=== PATIENT | male | born 1945 | race Caucasian/White ===

== ENCOUNTER 2021-09-08 08:34 | Outpatient (CLI) | payer MEDICARE, OTHER ==
[2021-09-08 10:24] LABS: INR-International Normal Ratio 0.9; PTT 25.9 sec (22.0-33.0)
[2021-09-08 18:57] LABS: SARS-CoV-2 PCR by NAA Not Detected (NotDetected)
== END 2021-09-08 08:35 | disposition home or self-care (01) ==
LOC: LABBT 08:34
PROVIDERS: ATTEND Surgery
DX: Z01.818 Encounter for other preprocedural examination (principal); M51.16 Intervertebral disc disorders with radiculopathy, lumbar region; M48.062 Spinal stenosis, lumbar region with neurogenic claudication; Z20.822 Contact with and (suspected) exposure to COVID-19
CPT/HCPCS: 85610; 85730; 93005; U0003; U0005; 93010

== ENCOUNTER 2021-09-12 09:18 | Inpatient (IN) | payer MEDICARE, OTHER ==
[2021-09-12] MEDS ORDERED: Thrombin 5000 UNITS/5 ML VIAL ONE (09:58)
[2021-09-12] MEDS ORDERED: Midazolam HCl 2 mg/2 ml Vial ONE (10:08)
[2021-09-12] MEDS ORDERED: ceFAZolin (BATCH) 2 GM/100 ML BAG ONE (10:08)
[2021-09-12] MEDS ORDERED: fentaNYL Citrate/PF 100 MCG/2 ML SYRINGE ONE ×2 (10:08→11:03)
[2021-09-12] MEDS ORDERED: HYDROmorphone 0.5 MG/0.5 ML SYRINGE ONE (10:09)
[2021-09-12] MEDS ORDERED: Famotidine/PF 20 mg/2ml Vial ONE (10:09)
[2021-09-12] MEDS ORDERED: ePHEDrine 50 MG/ML VIAL ONE (10:19)
[2021-09-12] MEDS ORDERED: Dexamethasone 20 MG/5 ML VIAL ONE (10:19)
[2021-09-12] MEDS ORDERED: PHENYLEPHRINE-NS 100 MCG/ML 10 ML SYRINGE ONE (10:19)
[2021-09-12] MEDS ORDERED: PROPOFOL 200 MG/20 ML VIAL ONE (10:19)
[2021-09-12] MEDS ORDERED: Rocuronium Bromide 10 MG/ML (10ML VIAL) ONE (10:19)
[2021-09-12] MEDS ORDERED: Succinylcholine 200 MG/10 ml SYRINGE FS ONE (10:19)
[2021-09-12] MEDS ORDERED: Ondansetron PF 4 MG/2 ML Vial ONE (10:19)
[2021-09-12] MEDS ORDERED: Glycopyrrolate 0.2 MG/ML 5 ML SYRINGE ONE (10:19)
[2021-09-12] MEDS ORDERED: Lidocaine 1% PF 5 ML VIAL ONE (10:19)
[2021-09-12] MEDS ORDERED: SUGAMMADEX SODIUM 200 MG/2 ML VIAL ONE (12:01)
[2021-09-12] MEDS ORDERED: HYDROmorphone 2 MG/ML VIAL ONE (13:11)
[2021-09-12] MEDS ORDERED: Ondansetron HCl/PF 4 MG/2 ML Vial IVP PRN (13:11)
[2021-09-12] MEDS ORDERED: Promethazine HCl 25 MG/ML VIAL IM PRN (13:11)
[2021-09-12] MEDS ORDERED: HYDROmorphone 2 MG/ML VIAL SLOW IVP PRN (13:11)
[2021-09-12] MEDS ORDERED: Promethazine HCl 25 MG/ML VIAL IVPB PRN (13:11)
[2021-09-12] MEDS ORDERED: traMADol HCl 50 MG TAB PO PRN (13:20)
[2021-09-12] MEDS ORDERED: Ondansetron PF 4 MG/2 ML Vial IVP PRN (13:20)
[2021-09-12] MEDS ORDERED: Acetaminophen 325 MG TAB PO PRN (13:20)
[2021-09-12] MEDS ORDERED: HYDROcodone/Acetaminophen 7.5/325 mg Tablet PO PRN (13:20)
[2021-09-12] MEDS ORDERED: Fentanyl 100 MCG/2 ML VIAL SLOW IVP PRN (13:20)
[2021-09-12] MEDS ORDERED: Fentanyl 250 MCG/5 ML VIAL ONE (13:49)
[2021-09-12] MEDS: Sodium Chloride 0.9% 1,000 ML IV SCH ×2 (16:19→16:20)
[2021-09-12 17:40] VITALS: BMI 30.7
[2021-09-12] MEDS: Cyclobenzaprine 10 MG TAB PO PRN (19:44)
[2021-09-12] MEDS: oxyCODONE 5 MG TAB PO PRN (19:46)
[2021-09-12] MEDS: ceFAZolin (BATCH) 2 GM in Premix Bag 1 BAG IVPB SCH (19:48)
[2021-09-12] MEDS ORDERED: Cepastat Lozenges 1 LOZ PO PRN (19:52)
[2021-09-12] MEDS ORDERED: hydrALAZINE 20 MG/ML VIAL SLOW IVP PRN (19:52)
[2021-09-12] MEDS ORDERED: HumaLOG 300 UNITS/3 ML VIAL SC PRN (19:52)
[2021-09-12] MEDS ORDERED: Dextrose 50% Abboject 50 ML SYRINGE IVP PRN (20:00)
[2021-09-12] MEDS ORDERED: Dextrose 5% in Water 1,000 ML IV PRN (20:00)
[2021-09-12] MEDS: Temazepam 15 MG CAP PO SCH (20:49)
[2021-09-12] MEDS: Acetaminophen/Codeine 30-300mg Tablet PO PRN (23:51)
[2021-09-13] MEDS: tiZANidine HCl 4 MG TAB PO PRN ×2 (00:40→19:07)
[2021-09-13] MEDS: ceFAZolin (BATCH) 2 GM in Premix Bag 1 BAG IVPB SCH (01:55)
[2021-09-13] MEDS: oxyCODONE 5 MG TAB PO PRN ×4 (04:58→23:32)
[2021-09-13] MEDS: Sodium Chloride 0.9% 1,000 ML IV SCH ×2 (05:16→21:48)
[2021-09-13] MEDS: Acetaminophen/Codeine 30-300mg Tablet PO PRN ×3 (09:36→19:07)
[2021-09-13] MEDS: DULoxetine 60 MG CAP PO SCH (09:41)
[2021-09-13] MEDS: Amlodipine 5 MG TAB PO SCH (09:41)
[2021-09-13] MEDS: Lisinopril 20 MG TAB PO SCH (09:41)
[2021-09-13] MEDS: metFORMIN XR 500 MG TAB PO SCH (11:28)
[2021-09-13] MEDS: Empagliflozin 10 MG TAB PO SCH (11:28)
[2021-09-13] MEDS: Cyclobenzaprine 10 MG TAB PO PRN ×2 (12:42→23:34)
[2021-09-13] MEDS ORDERED: Bisacodyl 5 MG TAB PO PRN (18:23)
[2021-09-13] MEDS ORDERED: Polyethylene Glycol 3350 17 GM Packet PO PRN (18:23)
[2021-09-13] MEDS ORDERED: Bisacodyl 10 MG SUPP PR PRN (18:23)
[2021-09-13] MEDS: Docusate 100 MG CAP PO SCH ×2 (19:07→20:31)
[2021-09-13] MEDS: Temazepam 15 MG CAP PO SCH (20:30)
[2021-09-14] MEDS: Acetaminophen/Codeine 30-300mg Tablet PO PRN ×3 (03:45→14:01)
[2021-09-14] MEDS: tiZANidine HCl 4 MG TAB PO PRN (04:55)
[2021-09-14] MEDS: oxyCODONE 5 MG TAB PO PRN (06:13)
[2021-09-14] MEDS: Docusate 100 MG CAP PO SCH ×2 (08:41→08:43)
[2021-09-14] MEDS: Lisinopril 20 MG TAB PO SCH ×2 (08:42→08:53)
[2021-09-14] MEDS: Empagliflozin 10 MG TAB PO SCH (08:42)
[2021-09-14] MEDS: metFORMIN XR 500 MG TAB PO SCH (08:42)
[2021-09-14] MEDS: Amlodipine 5 MG TAB PO SCH ×2 (08:43→08:54)
[2021-09-14] MEDS: DULoxetine 60 MG CAP PO SCH (08:43)
[2021-09-14 08:48] VITALS: TEMP 97.7
[2021-09-14 08:56] VITALS: BP 108/71
[2021-09-14 09:16] LABS: #Eosinphils 0.1 thou/uL (0.0-0.7); #Lymphocytes 1.8 thou/uL (1.20-3.40); #Neutrophils 7.7 thou/uL (1.40-6.50); %Basophils 0.4 % (0.0-1.0); %Eosinophils 1.1 % (0.0-10.0); %Lymphocytes 16.6 % (21.0-51.0); %Monocytes 9.2 % (0.0-10.0); %Neutrophils 72.6 % (42.0-75.0); Hemoglobin 14.3 g/dL (14.0-18.0); Mean Corpuscular HGB CONC 31.7 g/dL (32.0-36.0); Mean Corpuscular Hemoglobin 33.1 pg (27.0-31.0); Mean Platelet Volume 8.6 fL (7.4-10.4); Platelet Count 163 thou/uL (130-400); RBC Distribution Width 11.7 % (11.5-14.5); Red Blood Cell (RBC) Count 4.34 mill/uL (4.70-6.10); White Blood Cell (WBC) Count 10.6 thou/uL (4.8-10.8)
[2021-09-14 09:43] LABS: Anion Gap 15 mmol/L (10-20); BUN (Urea Nitrogen) 12 mg/dL (8.4-25.7); Calc. Creatinine Clearance 124 mL/min (70-130); Calcium 8.8 mg/dL (7.8-10.44); Carbon Dioxide 24 mmol/L (23-31); Chloride 100 mmol/L (98-107); Glucose 115 mg/dL (83-110); Potassium 3.8 mmol/L (3.5-5.1); Sodium 135 mmol/L (136-145)
== END 2021-09-14 14:03 | DRG 517 ==
LOC: SDC 09:18 → MSONC 15:44 → OBSVTOIN 09-13 17:05
PROVIDERS: ADMIT Surgery; ATTEND Surgery
PROC: 01NB0ZZ Release Lumbar Nerve, Open Approach (ICD-10-PCS; principal; 2021-09-13)
DX: M48.062 Spinal stenosis, lumbar region with neurogenic claudication (principal); Z20.822 Contact with and (suspected) exposure to COVID-19; M54.16 Radiculopathy, lumbar region; M51.26 Other intervertebral disc displacement, lumbar region; G60.0 Hereditary motor and sensory neuropathy; Z79.899 Other long term (current) drug therapy; Z79.82 Long term (current) use of aspirin; Z79.84 Long term (current) use of oral hypoglycemic drugs
CPT/HCPCS: 36415; 36416; 76000; 80048; 85025; 96365; 96366; 96375; G0378; J0690; J1100; J1170; J2250; J2405; J2704; J3010; J3370; J3490; J7050; S0028